=== PATIENT | male | born 1965 | race American Indian/Alaskan Native ===

== ENCOUNTER 2021-06-03 10:29 | Emergency (ER) | payer SELFPAY ==
[2021-06-03] MEDS ORDERED: SODIUM CHLORIDE 0.9% 1000 ML 1,000 ML IV ONE (10:32)
--- NOTE | 2021-06-03 10:32 | Emergency Department Report ---
ED General Adult HPI - General Chief complaint: Weakness Stated complaint: WEAKNESS Time Seen by Provider: 06/03/21 10:31 - History of Present Illness Initial comments: Patient presents by ambulance secondary to generalized weakness and the fact that he was reportedly vomiting blood. EMS states that they were called because the patient had been throwing up blood. EMS was told the patient had cirrhosis. He had been drinking the night before. His symptoms started today. Upon questioning the patient, he states that he has never been told by physician he has cirrhosis. He states his family keeps telling him that, but a physician has never made that diagnosis. He states that he had spontaneous blood come out of his mouth. He thought this might be related to a tooth. He states that he was not vomiting. He was not coughing. He has not had blood in the urine or blood in the stools. He was concerned that he had lost his On a tooth which caused bleeding. He does not feel dizzy or lightheaded. He states that he just feels weak all over. - Related Data Allergies Allergy/AdvReac Type Severity Reaction Status Date / Time No Known Allergies Allergy Verified 06/03/21 10:30 ED Review of Systems ROS: Stated complaint: WEAKNESS Other details as noted in HPI Comment: All other systems reviewed and negative Constitutional: denies: fever Eyes: denies: vision change ENT: denies: throat pain Respiratory: denies: cough Cardiovascular: denies: chest pain Endocrine: denies: unexplained weight loss Gastrointestinal: denies: abdominal pain Genitourinary: denies: dysuria Musculoskeletal: denies: back pain Skin: denies: rash Neurological: denies: headache Hematological/Lymphatic: denies: easy bruising ED Past Medical Hx - Past Medical History Previous Medical History?: No - Family History Family history: hypertension - Social History Substance Use Type: Alcohol ED Physical Exam - General Limitations: No Limitations, Other (Pulse ox noted and normal) General appearance: alert, in no apparent distress - Head Head exam: Present: atraumatic, normocephalic - Eye Eye exam: Present: normal appearance, EOMI. Absent: scleral icterus - ENT ENT exam: Present: normal orophraynx, normal external ear exam - Neck Neck exam: Present: normal inspection. Absent: meningismus - Respiratory Respiratory exam: Present: normal lung sounds bilaterally. Absent: respiratory distress - Cardiovascular Cardiovascular Exam: Present: regular rate, normal rhythm - GI/Abdominal GI/Abdominal exam: Present: soft. Absent: distended, tenderness - Extremities Exam Extremities exam: Present: normal capillary refill - Back Exam Back exam: Absent: CVA tenderness (R), CVA tenderness (L) - Neurological Exam Neurological exam: Present: altered, oriented X3, CN II-XII intact. Absent: motor sensory deficit - Psychiatric Psychiatric exam: Present: normal affect, normal mood - Skin Skin exam: Present: warm, dry ED Course Vital Signs 06/03/21 06/03/21 06/03/21 10:31 11:15 11:18 Temperature 98.3 F Pulse Rate 77 66 88 Respiratory 16 10 L 16 Rate Blood Pressure 149/85 Blood Pressure 148/89 [Left] O2 Sat by Pulse 98 99 98 Oximetry 06/03/21 11:31 Temperature Pulse Rate 69 Respiratory 13 Rate Blood Pressure 149/85 Blood Pressure [Left] O2 Sat by Pulse 100 Oximetry - Reevaluation(s) Reevaluation #1: 06/03/21 10:32 EMS was met upon arrival. IV and labs ordered. Old records reviewed. Reevaluation #2: 06/03/21 11:46 Labs are noted and the patient was discharged ED Medical Decision Making - Lab Data Result diagrams: 06/03/21 10:48 06/03/21 10:48 Rhythm strip: Normal sinus rhythm without ectopy. Monitor observe 10 seconds. - Medical Decision Making Patient presents secondary to possible hemoptysis versus hematemesis versus simply blood coming out of his mouth. Patient states that he was not having any kind of cough or vomiting. He states that he just had bleeding from his mouth that he believes is related to a tooth. Regardless, he does not have profound anemia that would require admission. He has no evidence of ongoing bleeding from any site. He is not thrombocytopenic. He has no focal weakness suggestive of stroke. He is in no respiratory distress. Patient was hydrated. He was then discharged. Critical Care Time: No Critical care attestation.: If time is entered above; I have spent that time in minutes in the direct care of this critically ill patient, excluding procedure time. ED Disposition Clinical Impression: Generalized weakness, Oropharyngeal bleeding Disposition: 01 HOME / SELF CARE / HOMELESS Is pt being admited?: No Condition: Stable Additional Instructions: Drink plenty water. Have a bland diet. Avoid alcohol. Do not take blood thinners. Follow-up with your regular doctor for recheck. Referrals: PRIMARY MD NILES [Primary Care Provider] - 3-5 Days KELVIN CHRISTENSEN MD [Staff Physician] - 3-5 Days
[2021-06-03 11:21] LABS: Hemoglobin 12.2 gm/dl (11.8-15.2); Mean Corpuscular HGB Conc 32 % (32-34); Mean Corpuscular Volume 90 fl (84-94); Platelet Count 166 K/mm3 (140-440); Red Blood Count 4.23 M/mm3 (3.65-5.03); Red Cell Distribution Width 15.7 % (13.2-15.2)
[2021-06-03 11:26] VITALS: BP 149/85
[2021-06-03 11:42] LABS: Alanine Aminotransferase 40 units/L (7-56); Albumin 4.6 g/dL (3.9-5); Blood Urea Nitrogen 8 mg/dL (9-20); Calcium 8.9 mg/dL (8.4-10.2); Hemolysis Index 6
[2021-06-03 11:43] LABS: BUN/Creatinine Ratio 13
== END 2021-06-03 12:13 | disposition home or self-care (01) ==
LOC: ED 10:29
DX: R53.1 Weakness (principal); R04.1 Hemorrhage from throat; Z72.89 Other problems related to lifestyle
CPT/HCPCS: 36415; 80053; 83735; 85027; 96360; 99283; J7030; Q0162